=== PATIENT | female | born 1990 | race African-American/Black ===

== ENCOUNTER → 2023-03-04 | Outpatient (CLI) | payer MEDICARE ==
[2023-03-04 14:56] LABS: BASO % 0.5 % (0.0-1.0); EOS # 0.2 10^3/uL (0.0-0.5); EOS % 3.3 % (0.0-3.0); HEMATOCRIT 43.7 % (36.0-47.0); HEMOGLOBIN 14.3 g/dl (12.0-15.5); LYMPH # 2.8 10^3/uL (1.5-5.0); LYMPH % 37.9 % (24.0-44.0); MEAN CORPUSCULAR HEMOGLOBIN 30.6 pg (27.0-33.0); MEAN CORPUSCULAR HGB CONC 32.7 g/dl (32.0-36.5); MEAN CORPUSCULAR VOLUME 93.4 fl (80.0-96.0); MONO # 0.5 10^3/uL (0.0-0.8); MONO % 7.3 % (2.0-8.0); NEUTROPHILS # 3.7 10^3/uL (1.5-8.5); NEUTROPHILS % 50.7 % (36.0-66.0); PLATELET COUNT, AUTOMATED 197 10^3/uL (150-450); RED BLOOD COUNT 4.68 10^6/uL (4.00-5.40); WHITE BLOOD COUNT 7.3 10^3/uL (4.0-10.0)
[2023-03-04 15:24] LABS: ALBUMIN 3.8 G/DL (3.2-5.2); ALKALINE PHOSPHATASE 59 U/L (46-116); ALT/SGPT 12 U/L (7.0-40); AST/SGOT < 8 U/L (<34); BILIRUBIN,TOTAL 0.6 MG/DL (0.3-1.2); BLOOD UREA NITROGEN 11 MG/DL (9-23); CALCIUM LEVEL 9.5 MG/DL (8.5-10.1); CARBON DIOXIDE LEVEL 26 MMOL/L (20-31); CHLORIDE LEVEL 110 MMOL/L (98-107); CHOLESTEROL LEVEL 153 MG/DL (<200); CHOLESTEROL RISK RATIO 3.22 (<5); FREE T4 1.17 NG/DL (0.89-1.76); GLOMERULAR FILTRATION RATE > 60.0 (>60); GLUCOSE, FASTING 77 MG/DL (60-100); HDL CHOLESTEROL 47.5 MG/DL (>40); LDL CHOLESTEROL 93.7 MG/DL (<100); NON-HDL-C 105.5 MG/DL; POTASSIUM SERUM 4.1 MMOL/L (3.5-5.1); SODIUM LEVEL 138 MMOL/L (136-145); TOTAL PROTEIN 6.6 G/DL (5.7-8.2); TOTAL T3 99.9 NG/DL (60.0-181.0); TRIGLYCERIDES LEVEL 59 MG/DL (<150)
[2023-03-04 15:25] LABS: THYROID STIMULATING HORMONE 1.411 uIU/ML (0.55-4.78); THYROXINE (T4) 9.8 UG/DL (4.5-10.9)
[2023-03-04 16:28] LABS: GC DNA AMPLIFICATION NEGATIVE (NEGATIVE)
[2023-03-04 16:37] LABS: HEMOGLOBIN A1c 4.9 % (4.0-6.0)
[2023-03-04 16:48] LABS: HIV 1&2 SCREEN NEGATIVE (NEGATIVE)
== END ==
LOC: M LAB 13:12
DX: A64 Unspecified sexually transmitted disease (principal); E04.9 Nontoxic goiter, unspecified; Z79.899 Other long term (current) drug therapy; Z11.3 Encounter for screening for infections with a predominantly sexual mode of transmission

== ENCOUNTER → 2023-04-07 | Outpatient (RCR) | payer MEDICARE | LOC: M ST 03-30 10:00 | PROVIDERS: ATTEND Physician Assistant | DX: H90.3 Sensorineural hearing loss, bilateral (principal) ==

== ENCOUNTER 2023-04-24 11:01 | Outpatient (RCR) | payer MEDICARE | END 2023-05-08 | LOC: M ST 11:01 | PROVIDERS: ATTEND Physician Assistant | DX: H90.3 Sensorineural hearing loss, bilateral (principal) ==

== ENCOUNTER 2023-09-16 10:25 | Emergency (ER) | payer MEDICARE ==
[~2023-09-16] VITALS: Ht 165.1 cm; Wt 78.0 kg
[2023-09-16 10:25] VITALS: BP 135/88; TEMP 99.3; O2SAT 99
[2023-09-16 12:03] LABS: RSV AMPLIFICATION NEGATIVE (NEGATIVE)
[2023-09-16] MEDS ORDERED: VENTAER INH (12:15)
[2023-09-16] MEDS ORDERED: BENZ200C70 PO (12:15)
== END 2023-09-16 12:42 | disposition home or self-care (01) ==
LOC: M ED 10:25
DX: J09.X2 Influenza due to identified novel influenza A virus with other respiratory manifestations (principal); J45.909 Unspecified asthma, uncomplicated

== ENCOUNTER → 2024-06-30 | Outpatient (REF) | payer MEDICARE, OTHER ==
[~2024-06-30] MED LIST: BENZ200C70 PO; VENTAER INH
[2024-06-30 20:58] LABS: Trichomonas vaginalis (AMP) NOT DETECTED (NEGATIVE)
[2024-06-30 21:22] LABS: GC DNA AMPLIFICATION NEGATIVE (NEGATIVE)
== END ==
LOC: M LAB REF 17:46
PROVIDERS: ATTEND Student in an Organized Health Care Education/Training Program
DX: R10.30 Lower abdominal pain, unspecified (principal); Z11.3 Encounter for screening for infections with a predominantly sexual mode of transmission; Z72.89 Other problems related to lifestyle

== ENCOUNTER → 2024-07-30 | Outpatient (REF) | payer OTHER ==
[2024-07-30 13:16] LABS: ALBUMIN 3.7 G/DL (3.2-5.2); ALKALINE PHOSPHATASE 51 U/L (35-104); ALT/SGPT 11 U/L (7.0-40); AST/SGOT 9 U/L (<34); BILIRUBIN,TOTAL 0.7 MG/DL (0.3-1.2); BLOOD UREA NITROGEN 8 MG/DL (9-23); CALCIUM LEVEL 9.6 MG/DL (8.5-10.1); CARBON DIOXIDE LEVEL 30 MMOL/L (20-31); CHLORIDE LEVEL 107 MMOL/L (98-107); CHOLESTEROL LEVEL 191 MG/DL (<200); CHOLESTEROL RISK RATIO 3.42 (<5); CREATININE FOR GFR 0.77 MG/DL (0.55-1.30); GLOMERULAR FILTRATION RATE > 60.0 (>60); GLUCOSE, FASTING 92 MG/DL (60-100); HDL CHOLESTEROL 55.8 MG/DL (>40); LDL CHOLESTEROL 120.2 MG/DL (<100); NON-HDL-C 135.2 MG/DL; POTASSIUM SERUM 4.3 MMOL/L (3.5-5.1); SODIUM LEVEL 141 MMOL/L (136-145); TOTAL PROTEIN 6.7 G/DL (5.7-8.2); TRIGLYCERIDES LEVEL 75 MG/DL (<150)
[2024-07-30 13:19] LABS: THYROID STIMULATING HORMONE 1.762 uIU/ML (0.55-4.78)
== END ==
LOC: M LAB REF 12:44
PROVIDERS: ATTEND Physician Assistant
DX: E66.9 Obesity, unspecified (principal); E55.9 Vitamin D deficiency, unspecified; Z79.899 Other long term (current) drug therapy

== ENCOUNTER → 2024-08-11 | Outpatient (CLI) | payer OTHER | LOC: M RAD 12:47 | PROVIDERS: ATTEND Physician Assistant | DX: M25.561 Pain in right knee (principal); M17.11 Unilateral primary osteoarthritis, right knee ==

== ENCOUNTER 2024-09-20 10:40 | Emergency (ER) | payer OTHER ==
[~2024-09-20] VITALS: Ht 165.1 cm; Wt 76.5 kg
[2024-09-20] MEDS ORDERED: CIPRHCOTIC OTIC (14:27)
[2024-09-20 14:36] VITALS: BP 128/69; TEMP 96.9; O2SAT 100
== END 2024-09-20 14:45 | disposition home or self-care (01) ==
LOC: M ED 10:40
DX: H60.92 Unspecified otitis externa, left ear (principal); Z79.52 Long term (current) use of systemic steroids; Z79.2 Long term (current) use of antibiotics

== ENCOUNTER → 2025-01-22 | Outpatient (CLI) | payer OTHER ==
[~2025-01-22] MED LIST changes: +CIPRHCOTIC OTIC
== END ==
LOC: M RAD 12:24
PROVIDERS: ATTEND Physician Assistant
DX: M25.561 Pain in right knee (principal)

== ENCOUNTER 2025-01-25 13:26 | Emergency (ER) | payer OTHER ==
[~2025-01-25] VITALS: Ht 165.1 cm; Wt 80.7 kg
[2025-01-25 14:07] LABS: BASO % 0.5 % (0.0-1.0); EOS # 0.3 10^3/uL (0.0-0.5); HEMATOCRIT 41.1 % (36.0-47.0); HEMOGLOBIN 13.6 g/dl (12.0-15.5); LYMPH # 2.6 10^3/uL (1.5-5.0); LYMPH % 31.1 % (24.0-44.0); MEAN CORPUSCULAR HEMOGLOBIN 31.5 pg (27.0-33.0); MEAN CORPUSCULAR HGB CONC 33.1 g/dl (32.0-36.5); MEAN CORPUSCULAR VOLUME 95.1 fl (80.0-96.0); MONO # 0.6 10^3/uL (0.0-0.8); MONO % 7.5 % (2.0-8.0); NEUTROPHILS # 4.7 10^3/uL (1.5-8.5); NEUTROPHILS % 56.7 % (36.0-66.0); PLATELET COUNT, AUTOMATED 184 10^3/uL (150-450); RED BLOOD COUNT 4.32 10^6/uL (4.00-5.40); WHITE BLOOD COUNT 8.3 10^3/uL (4.0-10.0)
[2025-01-25 14:37] LABS: BLOOD UREA NITROGEN 9 MG/DL (9-23); CALCIUM LEVEL 8.7 MG/DL (8.5-10.1); CARBON DIOXIDE LEVEL 28 MMOL/L (20-31); CHLORIDE LEVEL 106 MMOL/L (98-107); CREATININE FOR GFR 0.72 MG/DL (0.55-1.30); GLOMERULAR FILTRATION RATE > 90.0 (>60); GLUCOSE, FASTING 81 MG/DL (60-100); HCG, SERUM QUANTITATIVE < 2.6 MIU/ML (<4.2); POTASSIUM SERUM 3.8 MMOL/L (3.5-5.1); SODIUM LEVEL 142 MMOL/L (136-145)
[2025-01-25 16:25] LABS: CK-MB VALUE MASS < 1.0 NG/ML (<3.6)
[2025-01-25 16:28] LABS: CPK CREATINE PHOSPHOKINASE 192 U/L (34-145); MB/CK RELATIVE INDEX 0.52 (< OR =4)
[2025-01-25 17:10] LABS: CK-MB VALUE MASS < 1.0 NG/ML (<3.6); CPK CREATINE PHOSPHOKINASE 179 U/L (34-145); MB/CK RELATIVE INDEX 0.55 (< OR =4)
[2025-01-25 18:30] VITALS: BP 128/84; TEMP 97.7; O2SAT 99
== END 2025-01-25 18:38 | disposition home or self-care (01) ==
LOC: M ED 13:26
DX: N92.0 Excessive and frequent menstruation with regular cycle (principal)

== ENCOUNTER → 2025-04-21 | Outpatient (REF) | payer OTHER, MEDICAID | LOC: M LAB REF 14:38 | PROVIDERS: ATTEND Nurse Practitioner Family | DX: Z32.00 Encounter for pregnancy test, result unknown (principal) ==

== ENCOUNTER 2025-07-26 09:15 | Outpatient (RCR) | payer OTHER, MEDICAID | END 2025-08-07 | LOC: M PT 09:15 | PROVIDERS: ATTEND Physician Assistant | DX: M17.11 Unilateral primary osteoarthritis, right knee (principal); M25.561 Pain in right knee ==